=== PATIENT | female | born 1940 | race Caucasian/White ===

== ENCOUNTER 2023-11-07 06:08 | Day surgery (SDC) | payer MEDICARE ==
[~2023-11-07] VITALS: Ht 152.4 cm; Wt 114.3 kg
[2023-11-07] VITALS (10 sets, daily range): BP systolic 113–142; BP diastolic 50–61; PULSE 61–75; RESP 11–18
[~2023-11-07 06:08] MED LIST: ATOR40TA71 PO; CALCIUM PO; FLUT16H NASAL; FOLIC ACID PO; GABA-529 PO; LEVE-43 PO; LOSA25TA41 PO; PANT40TA54 PO; SERT-440 PO; TRAZ-187 PO; VITA1CAP85 PO
[2023-11-07] MEDS: 0.9%NACL 1000ML 1,000 ML IV ONE (06:56)
[2023-11-07] MEDS ORDERED: PROPOFOL 10 MG/ML 20ML VIAL IV ONE ×2 (08:22→08:55)
== END 2023-11-07 10:04 | disposition home or self-care (01) ==
LOC: ENDO 06:08 → DAH 06:08 → ENDO 10:04
PROVIDERS: ATTEND Internal Medicine
DX: Z12.11 Encounter for screening for malignant neoplasm of colon (principal); R13.10 Dysphagia, unspecified; K57.30 Diverticulosis of large intestine without perforation or abscess without bleeding; J44.9 Chronic obstructive pulmonary disease, unspecified; K59.01 Slow transit constipation; K21.00 Gastro-esophageal reflux disease with esophagitis, without bleeding; K29.50 Unspecified chronic gastritis without bleeding; K31.89 Other diseases of stomach and duodenum; G47.30 Sleep apnea, unspecified; I10 Essential (primary) hypertension; E11.9 Type 2 diabetes mellitus without complications; F41.9 Anxiety disorder, unspecified; F32.A Depression, unspecified; M19.90 Unspecified osteoarthritis, unspecified site; Z90.49 Acquired absence of other specified parts of digestive tract; Z90.710 Acquired absence of both cervix and uterus; Z98.49 Cataract extraction status, unspecified eye; Z80.0 Family history of malignant neoplasm of digestive organs; Z86.010 Personal history of colon polyps; Z79.899 Other long term (current) drug therapy
CPT/HCPCS: 43239; 43248; 82948; G0105; J7030 ×2; J2704 ×2; A4620; A4215 ×2; A4223; A4657; A4222; A4221; A4663; A4606; J3490

== ENCOUNTER → 2024-02-07 | Outpatient (CLI) | payer MEDICARE | END | disposition home or self-care (01) | LOC: RAH 10:35 | PROVIDERS: ATTEND Internal Medicine Gastroenterology | DX: K59.04 Chronic idiopathic constipation (principal); M47.815 Spondylosis without myelopathy or radiculopathy, thoracolumbar region; Z90.49 Acquired absence of other specified parts of digestive tract | CPT/HCPCS: 74018 ==